=== PATIENT | female | born 1970 | race Caucasian/White ===

== ENCOUNTER 2021-03-03 11:33 | Emergency (ER) | payer BC ==
[~2021-03-03] VITALS: Ht 175.3 cm; Wt 91.0 kg
[2021-03-03 12:15] VITALS: BP 132/100
--- NOTE | 2021-03-03 13:22 | PHYS DOC ---
Past Medical History Past Medical History: No Pertinent History Past Surgical History: Other Additional Past Surgical Histo: HERNIA REPAIR Smoking Status: Never Smoker Alcohol Use: None General Adult EDM: Chief Complaint: INSECT BITE HPI: HPI: 50 yo female who denies any significant past medical history presents the ED with complaints of red rash over right elbow, believes she was bit by a bug, cannot recall any specific injury. Was prescribed doxycycline, topical bacitracin and probiotics for gastrointestinal and yeast on 02/26 at an [facility]. Reports the wound has been draining yellow/white cottage cheese material. Red rash has gone down but there are some areas that are very hard and some that are soft. FROM of elbow joint. Multiple episodes of nonbloody nonbilious vomiting for the past day. Cannot recall when her last tetanus was updated. Review of Systems: Review of Systems: Constitutional: Denies fever or chills. [] Eyes: Denies change in visual acuity. [] HENT: Denies nasal congestion or sore throat. [] Respiratory: Denies cough or shortness of breath. [] Cardiovascular: Denies chest pain or edema. [] GI: Denies abdominal pain, bloody stools or diarrhea. [] Musculoskeletal: Denies back pain or joint pain. [] Integument: Denies desquamation or diaphoresis Neurologic: Denies headache, focal weakness or sensory changes. [] Psychiatric: Denies depression or anxiety. [] Heart Score: C/O Chest Pain: No Risk Factors: Risk Factors: DM, Current or recent (<one month) smoker, HTN, HLP, family history of CAD, obesity. Risk Scores: Score 0 - 3: 2.5% MACE over next 6 weeks - Discharge Home Score 4 - 6: 20.3% MACE over next 6 weeks - Admit for Clinical Observation Score 7 - 10: 72.7% MACE over next 6 weeks - Early Invasive Strategies Allergies: Allergies: Allergies Coded Allergies Type Severity Reaction Last Updated Verified No Known Drug Allergies 03/03/21 No Physical Exam: PE: Constitutional: Well developed, well nourished, no acute distress, non-toxic appearance. HENT: Normocephalic, atraumatic, Eyes: EOMI, conjunctiva normal, no discharge. Neck: Normal range of motion, supple, Cardiovascular: S1/2 present, regular rhythm Lungs & Thorax: Speaking in full sentences, bilateral equal chest rise, no tachypnea or increased work of breathing Skin: Warm, dry, 5x5cm area of erythema and induration with central hypcsbicaio-jvnij-bn-care ultrasound shows 1.2 x 1.15 cm area of underlying fluid Extremities: No tenderness, no cyanosis, Neurologic: Alert and oriented X 3, no focal deficits noted. [] Psychologic: Affect normal, judgement normal, mood normal. [] Current Patient Data: Vital Signs: Vital Signs Date Time Temp Pulse Resp B/P (MAP) Pulse Ox O2 Delivery O2 Flow Rate FiO2 03/03/21 12:15 98.2 92 18 132/100 (111) 100 Room Air 98.2 EKG: EKG: [] Radiology/Procedures: Radiology/Procedures: IMAGING REPORT Signed PATIENT: YSABEL RUTHERFORD ACCOUNT: [id number] : 1970 LOCATION: ER AGE: 50 SEX: F EXAM STATUS: REG ER ORD. PHYSICIAN: SASCHA SWEENEY DO REASON: abscess right lateral aspect of elbow PROCEDURE: ELBOW RIGHT 3V Study: XR ELBOW COMPLETE_RIGHT 3+ VIEWS Indication: Abscess. Comparison: None. Findings: Inflammatory prominence of the soft tissues at the lateral elbow at the level of the distal humerus. No fracture, malalignment or significant arthrosis. No large elbow joint effusion. Impression: Soft tissue irregularity at the lateral aspect of the elbow at the level of the distal humerus which would correspond with the reported abscess. Noting incomplete assessment by radiography this appears to be centered within the subcutaneous tissues measuring 3.8 cm in length by 2.1 cm transverse. Electronically signed by: TAMANNA BENTON MD (03/03/2021 1:58 PM) [facility] DICTATED and SIGNED BY: TAMANNA BENTON MD DATE: 03/03/21 [id number] Course & Med Decision Making: Course & Med Decision Making Pertinent Labs and Imaging studies reviewed. (See chart for details) [] Dragon Disclaimer: Dragon Disclaimer: This electronic medical record was generated, in whole or in part, using a voice recognition dictation system. Departure Departure Impression: Primary Impression: Cellulitis of right elbow Additional Impressions: Abscess of right elbow Need for Tdap vaccination Antibiotic causing adverse effect Disposition: HOME / SELF CARE / HOMELESS Condition: STABLE Referrals: NO PCP (PCP) Follow-up for wound check in 48 to 72 hours or FOLLOW UP WITH FAMILY MEDICINE: [address], [address] [place] [address] Patient Instructions: Abscess, Cellulitis, VIS, Tetanus, Diphtheria (Td); Tetanus, Diphtheria, Pertussis (Tdap) - CDC Additional Instructions: FOLLOW UP WITH WOUND CARE: [facility] [address], [address] [place] [address] EMERGENCY DEPARTMENT GENERAL DISCHARGE INSTRUCTIONS Thank you for coming to [facility] Emergency Department (ED) today and trusting us with you care. We trust that you had a positive experience in our Emergency Department. If you wish to speak to the department management, you may call the Director at [phone]. YOUR FOLLOW UP INSTRUCTIONS ARE FOLLOWS: 1. Do you have a private Doctor? If you do not have a private doctor, please ask for a resource list of physicians or clinics that may be able to assist you with follow up care. 2. The Emergency Physicain has interpreted your x-rays. The X-Ray specialist will also review them. If there is a change in the findings, you will be notified in 48 hours when at all possible. 3. A lab test or culture has been done, your results will be reviewed and you will be notified if you need a change in treatment. ADDITIONAL INSTRUCTIONS AND INFORMATION: 1. Your care today has been supervised by a physician who is specially trained in emergency care. Many problems require more than one evaluation for a complete diagnosis and treatment. We recommend that you schedule your follow up appointment as recommended to ensure complete treatment of you illness or injury. If you are unable to obtain follow up care and continue to have a problem, or if your condition worsens, we recommend that you return to the ED. 2. We are not able to safely determine your condition over the phone nor are we able to give sound medical advice over the phone. For these safety reasons, if you call for medical advice we will ask you to come to the ED for further evaluation. 3. If you have any questions regarding these discharge instructions please call the ED at [phone]. SAFETY INFORMATION: In the interest of safety, wellness, and injury prevention; we encourage you to wear your sealbelt, if you smoke; quite smoking, and we encourage family to use a protective helmet for bicycling and other sporting events that present an increased risk for head injury. IF YOUR SYMPTOMS WORSEN OR NEW SYMPTOMS DEVELOP, OR YOU HAVE CONCERNS ABOUT YOUR CONDITION; OR IF YOUR CONDITION WORSENS WHILE YOU ARE WAITING FOR YOUR FOLLOW UP APPOINTMENT; EITHER CONTACT YOUR PRIMARY CARE DOCTOR, THE PHYSICIAN WHOSE NAME AND NUMBER YOU WERE GIVEN, OR RETURN TO THE ED IMMEDIATELY. Scripts Sulfamethoxazole/Trimethoprim (BACTRIM DS TABLET) 1 Each Tablet 1 TAB PO BID for infection for 10 Days, #20 TAB Prov: SASCHA SWEENEY DO 03/03/21 Cephalexin (CEPHALEXIN) 500 Mg Capsule 1 CAP PO QID for 10 Days, #40 CAP Prov: SASCHA SWEENEY DO 03/03/21 Ondansetron (ONDANSETRON ODT) 4 Mg Tab.rapdis 1 TAB PO PRN Q6-8HRS, #20 TAB Prov: SASCHA SWEENEY DO 03/03/21 SASCHA SWEENEY DO March 03, 2021 13:22
[2021-03-03] MEDS ORDERED: ONDANSETRON ODT 4 MG TAB.RAPDIS. ONE (14:00)
--- NOTE | 2021-03-03 14:00 | RAD ---
Study: XR ELBOW COMPLETE_RIGHT 3+ VIEWS Indication: Abscess. Comparison: None. Findings: Inflammatory prominence of the soft tissues at the lateral elbow at the level of the distal humerus. No fracture, malalignment or significant arthrosis. No large elbow joint effusion. Impression: Soft tissue irregularity at the lateral aspect of the elbow at the level of the distal humerus which would correspond with the reported abscess. Noting incomplete assessment by radiography this appears to be centered within the subcutaneous tissues measuring 3.8 cm in length by 2.1 cm transverse. Electronically signed by: TAMANNA BENTON MD (03/03/2021 1:58 PM) [facility]
[2021-03-03] MEDS ORDERED: ONDANSETRON ODT 4 MG TAB.RAPDIS. PO ONE (14:15)
[2021-03-03] MEDS ORDERED: LIDOCAINE 1% Multi-Dose 20 ML VIAL. ONE (14:27)
[2021-03-03] MEDS ORDERED: LIDOCAINE 1% Multi-Dose 20 ML VIAL. INJ ONE (14:45)
[2021-03-03] MEDS ORDERED: DIPH,PERTUSS(ACELL),TET VAC/PF 0.5 ML SYRINGE. VAX IM ONE (14:45)
[2021-03-03] MEDS ORDERED: SULF1TAB24 PO (14:47)
[2021-03-03] MEDS ORDERED: CEPH500C PO (14:47)
[2021-03-03] MEDS ORDERED: ONDA4TAB12 PO (14:47)
== END 2021-03-03 14:50 | disposition home or self-care (01) ==
LOC: ER 11:33
DX: L03.113 Cellulitis of right upper limb (principal); L02.511 Cutaneous abscess of right hand; L25.8 Unspecified contact dermatitis due to other agents; T36.95XA Adverse effect of unspecified systemic antibiotic, initial encounter; Y92.89 Other specified places as the place of occurrence of the external cause
CPT/HCPCS: 73080; 90471; 90715; 99283; J3490